=== PATIENT | male | born 1975 | race African-American/Black ===

== ENCOUNTER 2017-11-15 09:02 | Emergency (ER) | payer SELFPAY ==
[~2017-11-15] VITALS: Ht 188 cm; Wt 99.8 kg
[2017-11-15 09:12] VITALS: BP 136/86
== END 2017-11-15 09:35 | disposition home or self-care (01) ==
LOC: ER 09:04
DX: J20.9 Acute bronchitis, unspecified (principal)
CPT/HCPCS: 99283; A4606; Z7610

== ENCOUNTER 2019-07-20 18:43 | Emergency (ER) | payer OTHER ==
[~2019-07-20] VITALS: Ht 188 cm; Wt 99.8 kg
--- NOTE | 2019-07-20 18:53 | NUR ---
CAME IN FOR WORSENING L SIDED CHEST PRESSURE AND SHARP PAIN RADIATING TO L SHOULDER, LUE NUMBNESS X 1 WEEK. TO ER BED 9,PATEINT AOx4 , NAD NOTED, HOOKED TO MONITOR, CHANGED TO GOWN, PROVIDED W WARM BLANKET, AWAITING MD GROVES
--- NOTE | 2019-07-20 19:00 | NUR ---
DR ERVIN AT BEDSIDE
[2019-07-20] MEDS ORDERED: ASPIRIN 325 MG TABLET ONE (19:06)
[2019-07-20 19:38] LABS: BASOPHILS # (AUTO) 0.1 /CMM (0.0-0.2); BASOPHILS % (AUTO) 1.1 % (0.0-2.0); EOSINOPHILS % (AUTO) 4.1 % (0.0-6.0); HEMATOCRIT 45 % (39-51); HEMOGLOBIN 15.2 g/dL (13.5-17.5); LYMPHOCYTES # (AUTO) 1.1 /CMM (0.8-4.8); MEAN CORPUSCULAR HGB CONC 34 g/dl (31.0-36.0); MEAN CORPUSCULAR VOLUME 95 fL (80-96); MONOCYTES # (AUTO) 0.3 /CMM (0.1-1.30); MONOCYTES % (AUTO) 5.8 % (2.0-12.0); NEUTROPHILS # (AUTO) 2.9 /CMM (1.8-8.9); PLATELET COUNT (AUTO) 146 /CMM (150-450); RED BLOOD CELL COUNT(AUTO) 4.67 MIL/uL (4.5-6.0); WHITE BLOOD COUNT (AUTO) 4.5 K/uL (4.3-11.0)
--- NOTE | 2019-07-20 19:38 | NUR ---
BIBSELF. TO ER BED 9. AAOX4. NO RESP DISYRESS NOTED, BREATHING EVEN AND UNLABORED. AMBULATORY. C/O L CHEST PAIN W/ L ARM NUMBNESS. PT REPORT CP HAS BEEN GOING ON FOR THE PAST ATLEAST 10 DAYS. PT REPORT SHARP PAIN, WHICH IS NOT PRESENT UPON ASSESSMENT. PT REPORTS THAT IT IS THE FIRST TIME HE FELT IT. PT RATES PAIN 05/04. MD WAS T BEDSIDE FOR EVAL. ORDERS RECIEVED, NOTED AND CARRIED OUT
--- NOTE | 2019-07-20 19:41 | NUR ---
PT REFUSED TO TAKE ASPIRIN. RISK AND BENEFITS EXPLAIEND TO PT. MADE AWARE
[2019-07-20 19:45] LABS: CARBON DIOXIDE 28 mmol/L (21-32); CHLORIDE 106 mmol/L (98-107); CREATININE 1.2 mg/dL (0.6-1.3); GLUCOSE 108 mg/dL (74-106); POTASSIUM 3.5 mmol/L (3.5-5.1); SODIUM SERUM 140 mmol/L (136-145); UREA NITROGEN, BLOOD 11 mg/dL (7-18)
[2019-07-20] MEDS: ASPIRIN 325 MG TABLET PO ONE (20:21)
[2019-07-20 20:22] VITALS: BP 131/73
--- NOTE | 2019-07-20 20:22 | NUR ---
IV removed. Catheter intact and site benign. Pressure and 4x4 applied to site. No bleeding noted.Patient discharged to home in stable condition. Written and verbal after care instructions given. Patient verbalizes understanding of instruction. Pt ambulatory with a steady gait
== END 2019-07-20 20:23 | disposition home or self-care (01) ==
LOC: ER 18:49
DX: R07.89 Other chest pain (principal)
CPT/HCPCS: 36415; 71045-TC; 80048-TC; 84484-TC; 85025-TC